=== PATIENT | female | born 1985 | race Caucasian/White ===

== ENCOUNTER 2016-10-10 04:29 | Inpatient (IN) ==
[2016-10-10 05:30] LABS: URINE SOURCE VOIDED
[2016-10-10] MEDS ORDERED: PEPCID PO PRN (05:30)
[2016-10-10] MEDS ORDERED: STADOL IV PRN (05:30)
[2016-10-10] MEDS ORDERED: SODIUM CHLORIDE 0.9% INJ SCH (05:30)
[2016-10-10] MEDS ORDERED: PEPCID IV PRN (05:30)
[2016-10-10] MEDS ORDERED: LR 1,000 ML IV SCH (05:30)
[2016-10-10] MEDS ORDERED: PEPCID PO ONE (05:30)
[2016-10-10] MEDS ORDERED: REGLAN PO ONE (05:30)
[2016-10-10] MEDS ORDERED: KEFZOL 1 GM/D5W 1 GM/50 ML IVPB IV PRN (05:30)
[2016-10-10] MEDS ORDERED: TYLENOL PO PRN (05:30)
[2016-10-10] MEDS ORDERED: ZOFRAN IV PRN (05:30)
[2016-10-10] MEDS ORDERED: AMPICILLIN 2 GM/NS 2 GM/100 ML IVPB IV ONE (05:30)
[2016-10-10] MEDS ORDERED: PITOCIN 30 UNITS/LR 30 UNITS/500 ML IV.SOLN IV SCH (05:30)
[2016-10-10 05:38] LABS: MANUAL DIFF NEEDED? NO
[2016-10-10] MEDS ORDERED: FENTANYL-BUPIV-NS 2 MCG-0.1% 200 ML EPIDURAL PRN (05:38)
[2016-10-10 05:40] LABS: BASO% 0.3 % (0.0-0.8); EOS# 0.27 X1000 (0.0-0.7); EOS% 2.4 % (0.0-10.0); HEMATOCRIT 34.8 % (37.0-47.0); HEMOGLOBIN 11.5 g/dL (12.0-16.0); IMM GRAN# 0.03 X1000 (0.0-0.04); IMM GRAN% 0.3 % (0.0-0.5); LYMPH# 3.35 X1000 (1.2-3.4); LYMPH% 29.4 % (20.5-51.1); MCH 27.3 PG (27-31); MCV 82.5 FL (81-99); MONO# 0.94 X1000 (0.11-0.59); MONO% 8.3 % (1.7-9.3); MPV 10.5 FL (7.4-10.4); NEUT% 59.3 % (42.2-75.2); PLT 303 X1000 (130-400); RBC 4.22 XMIL (4.2-5.4)
[2016-10-10 05:59] LABS: BILIRUBIN URINE NEGATIVE (NEGATIVE); BLOOD URINE 2+ (NEGATIVE); CLARITY CLEAR (CLEAR); COLOR YELLOW; GLUCOSE URINE NEGATIVE (NEGATIVE); LEUKOCYTES URINE 1+ (NEGATIVE); NITRITE URINE NEGATIVE (NEGATIVE); PROTEIN URINE NEGATIVE (NEGATIVE); UROBILINOGEN URINE NORMAL
[2016-10-10] MEDS ORDERED: AMBIEN PO PRN (07:07)
[2016-10-10] MEDS ORDERED: PITOCIN 30 UNITS/LR 30 UNITS/500 ML IV.SOLN IV ONE (07:07)
[2016-10-10] MEDS ORDERED: MINERAL OIL PO PRN (07:07)
[2016-10-10] MEDS ORDERED: PITOCIN IM PRN (07:07)
[2016-10-10] MEDS ORDERED: PITOCIN 20 UNITS/LR 20 UNITS/1,000 ML IV.SOLN IV SCH (07:07)
[2016-10-10] MEDS ORDERED: M-M-R II VACCINE SUBQ ONE (07:07)
[2016-10-10] MEDS ORDERED: HYDROXYZINE PO PRN (07:07)
[2016-10-10] MEDS ORDERED: PERI MEDS (DERMOPLAST/NUPERCAINAL/TUCKS) MISC PRN (07:07)
[2016-10-10] MEDS ORDERED: HYDROXYZINE IM PRN (07:07)
[2016-10-10] MEDS ORDERED: BOOSTRIX VACCINE IM ONE (07:07)
[2016-10-10] MEDS ORDERED: CYTOTEC PO PRN (07:07)
[2016-10-10] MEDS ORDERED: XYLOCAINE-MPF 1% INJ PRN (07:07)
[2016-10-10] MEDS ORDERED: BENADRYL IV PRN (07:07)
[2016-10-10] MEDS ORDERED: BENADRYL PO PRN (07:07)
[2016-10-10 07:31] LABS: UR AMPHETAMINES QUAL NONE DETECTED (NONE DETECT); UR BARBITUATES QUAL NONE DETECTED (NONE DETECT); UR BENZODIAZEPIN QUAL NONE DETECTED (NONE DETECT); UR CANNABINOIDS QUAL NONE DETECTED (NONE DETECT); UR COCAINE QUAL NONE DETECTED (NONE DETECT); UR MDMA QUAL NONE DETECTED (NONE DETECT); UR METHADONE QUAL NONE DETECTED (NONE DETECT); UR METHAMPHETAMINE QUAL NONE DETECTED (NONE DETECT); UR OPIATES QUAL NONE DETECTED (NONE DETECT); UR OXYCODONE QUAL NONE DETECTED (NONE DETECT); UR PCP QUAL NONE DETECTED (NONE DETECT); UR TCA QUAL NONE DETECTED (NONE DETECT)
[2016-10-10] MEDS: MOTRIN PO PRN ×2 (08:08→15:52)
[2016-10-10] MEDS: NORCO-10 PO PRN ×4 (08:08→21:07)
[2016-10-10] MEDS ORDERED: AMPICILLIN 1 GM/NS 1 GM/50 ML IVPB IV SCH (09:31)
[2016-10-10] MEDS: FLINTSTONES COMPLETE PO SCH (09:35)
[2016-10-10 18:21] LABS: MANUAL DIFF NEEDED? NO
[2016-10-10 18:23] LABS: BASO% 0.2 % (0.0-0.8); EOS# 0.29 X1000 (0.0-0.7); EOS% 2.3 % (0.0-10.0); HEMATOCRIT 32.3 % (37.0-47.0); HEMOGLOBIN 10.5 g/dL (12.0-16.0); IMM GRAN# 0.05 X1000 (0.0-0.04); IMM GRAN% 0.4 % (0.0-0.5); LYMPH# 3.51 X1000 (1.2-3.4); LYMPH% 27.8 % (20.5-51.1); MCH 26.9 PG (27-31); MCHC 32.5 g/dL (33-37); MCV 82.8 FL (81-99); MONO# 0.94 X1000 (0.11-0.59); MONO% 7.4 % (1.7-9.3); MPV 10.1 FL (7.4-10.4); NEUT% 61.9 % (42.2-75.2); PLT 256 X1000 (130-400)
[2016-10-10 18:31] LABS: PROTEIN CREAT RATIO 0.2; UR CREAT RANDOM 90.2 mg/dL (11-20)
[2016-10-10 18:46] LABS: AGAP 11; ALBUMIN 2.8 g/dL (3.5-5.0); ALKALINE PHOSPHATASE 160 U/L (32-104); BUN 8 mg/dL (8-22); CALCIUM 8.5 mg/dL (8.8-10.2); CHLORIDE 100 mmol/L (98-107); COSMO 263; GOT 13 U/L (10-30); GPT < 5 U/L (10-36); POTASSIUM 4.1 mmol/L (3.5-5.1); SODIUM 132 mmol/L (136-145); TCO2 21 mmol/L (25-35); TOTAL BILIRUBIN < 0.15 mg/dL (0.20-1.00); URIC ACID 5.1 mg/dL (2.4-5.7)
[2016-10-10] MEDS: PERICOLACE PO SCH (21:07)
[2016-10-10 23:37] LABS: LDH 229 U/L (135-214)
[2016-10-11] MEDS: MOTRIN PO PRN ×3 (01:36→21:22)
[2016-10-11] MEDS: NORCO-10 PO PRN ×3 (01:36→12:45)
[2016-10-11 06:25] LABS: MANUAL DIFF NEEDED? NO
[2016-10-11 06:50] LABS: BASO% 0.2 % (0.0-0.8); EOS# 0.41 X1000 (0.0-0.7); EOS% 3.8 % (0.0-10.0); HEMATOCRIT 33.7 % (37.0-47.0); HEMOGLOBIN 10.7 g/dL (12.0-16.0); IMM GRAN# 0.04 X1000 (0.0-0.04); IMM GRAN% 0.4 % (0.0-0.5); LYMPH% 31.7 % (20.5-51.1); MCH 26.7 PG (27-31); MCHC 31.8 g/dL (33-37); MONO% 6.5 % (1.7-9.3); MPV 10.9 FL (7.4-10.4); NEUT% 57.4 % (42.2-75.2); PLT 257 X1000 (130-400); RBC 4.01 XMIL (4.2-5.4)
[2016-10-11] MEDS: FLINTSTONES COMPLETE PO SCH (08:17)
--- NOTE | 2016-10-11 13:27 | PROGRESS NOTE ---
DATE: 10/11/2016 SUBJECTIVE: She is day 1. She is without complaints this morning except for some mild cramping. She did well yesterday tolerating p.o., ambulating, voiding. OBJECTIVE: Vital Signs: Temperature 98.1 degrees, blood pressure 138/83. She is alert and cooperative in no acute distress. Neck is supple. Lungs are clear. Heart: Regular sinus rhythm. Abdomen is distended. Uterus is firm. Nontender. Hemoglobin and hematocrit 10/33. Patient had delivery yesterday and has done well. Expect discharge in the morning. cc: Donte Dumont MD
[2016-10-11] MEDS: NORCO-5 PO PRN ×2 (18:22→21:22)
[2016-10-11] MEDS: PERICOLACE PO SCH (21:22)
[2016-10-12] MEDS: NORCO-5 PO PRN (03:57)
[2016-10-12 10:25] VITALS: BP 150/87
== END 2016-10-12 09:25 | disposition home or self-care (01) ==
LOC: P.OPLD 04:29 → P.LD 04:35 → P.WC 11:34
PROVIDERS: ADMIT Obstetrics & Gynecology; ATTEND Obstetrics & Gynecology